=== PATIENT | female | born 1955 ===

== ENCOUNTER 2017-07-20 15:54 | Emergency (ER) | payer MEDICAID, OTHER ==
[2017-07-20 16:11] VITALS: PULSE 73
[2017-07-20] MEDS ORDERED: Lactated Ringer's 1,000 ML IV ONE (17:16)
--- NOTE | 2017-07-20 17:33 | C.PDOC ---
History Of Present Illness 61 y/o female with past medical history of diabetes and hypertension presents to ED with complaints of right lower back pain radiating to low abdomen worse today. Patient states pain has been going on for "a long time" and was told she had a kidney stone. Patient has not had surgery to remove stone secondary to not having insurance and unable to pay for it. Patient reports nausea and denies fever, chills, shortness of breath, chest pain, urinary/bowel incontinence or any other complaints at this time. Time Seen by Provider: 07/20/17 17:03 Chief Complaint (Nursing): Female Genitourinary History Per: Patient History/Exam Limitations: no limitations Onset/Duration Of Symptoms: Days Current Symptoms Are (Timing): Still Present Quality Of Discomfort: "Pain" Past Medical History Reviewed: Historical Data, Nursing Documentation, Vital Signs Vital Signs: Last Vital Signs Temp 97.6 F 07/20/17 19:30 Pulse 73 07/20/17 19:30 Resp 20 07/20/17 19:30 BP 129/77 07/20/17 19:30 Pulse Ox 99 07/20/17 19:30 - Medical History PMH: HTN, Kidney Stones Surgical History: No Surg Hx Family History: States: No Known Family Hx - Social History Hx Alcohol Use: No Hx Substance Use: No - Immunization History Hx Tetanus Toxoid Vaccination: No Hx Influenza Vaccination: No Hx Pneumococcal Vaccination: No Review Of Systems Constitutional: Negative for: Fever, Chills Gastrointestinal: Positive for: Nausea, Abdominal Pain. Negative for: Vomiting Genitourinary: Negative for: Dysuria, Hematuria Musculoskeletal: Positive for: Back Pain Skin: Negative for: Rash Physical Exam - Physical Exam Appears: Non-toxic, No Acute Distress Skin: Warm, Dry, No Rash Head: Normacephalic Eye(s): bilateral: Normal Inspection Oral Mucosa: Moist Neck: Normal ROM, Supple Chest: Symmetrical Cardiovascular: Rhythm Regular Respiratory: Normal Breath Sounds, No Accessory Muscle Use, No Rales, No Rhonchi , No Wheezing Gastrointestinal/Abdominal: Soft, No Tenderness, No Guarding, No Rebound Extremity: Normal ROM, Capillary Refill (<2 seconds) Neurological/Psych: Oriented x3, Normal Motor, Normal Sensation ED Course And Treatment - Laboratory Results Result Diagrams: 07/20/17 17:41 07/20/17 17:41 Lab Interpretation: No Acute Changes O2 Sat by Pulse Oximetry: 97 (RA) Pulse Ox Interpretation: Normal Medical Decision Making Medical Decision Making: Impression: Flank pain Plan: * Labs * CT Abd/pelvis Progress: Labs show mild hypokalemia. UA negative. CT shows 2 cm elliptical shaped calculus within the right renal pelvis Discussed results with patient, and copy of report was provided. On re-examination, patient is resting comfortably in no acute distress. Patient reports improvement of symptoms. Patient feels comfortable going home and will be discharged. Patient given follow up instructions. Instructed to return to ER if symptoms worsen or new symptoms arise. Disposition Counseled Patient/Family Regarding: Studies Performed, Diagnosis, Need For Followup, Rx Given - Disposition Referrals: Stephen Galindo MD [Staff Provider] - Disposition: HOME/ ROUTINE Disposition Time: 19:04 Condition: IMPROVED Additional Instructions: Tienes clculos renales Seguimiento con urlogo Onida medicamento para el dolor segn sea necesario Prescriptions: Ibuprofen [Motrin] 600 mg PO Q8 #30 tab Tamsulosin [Flomax] 0.4 mg PO DAILY #10 cap traMADol [Ultram] 50 mg PO Q8 #14 tab Instructions: Kidney Stones (DC) Forms: [employer] (Algerian) Print Language: BULGARIAN - POA Present On Arrival: None - Clinical Impression Clinical Impression: Kidney stone on right side - 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 - Scribe Statement The provider has reviewed the documentation as recorded by the Mihiribmichelle Hanna All medical record entries made by the Mihiribmichelle were at my direction and personally dictated by me. I have reviewed the chart and agree that the record accurately reflects my personal performance of the history, physical exam, medical decision making, and the department course for this patient. I have also personally directed, reviewed, and agree with the discharge instructions and disposition.
[2017-07-20 17:52] LABS: BASO # 0.1 K/uL (0.0-0.2); BASO % 0.8 % (0.0-2.0); EOS # 0.6 K/uL (0.0-0.7); EOS % 5.1 % (0.0-4.0); HEMATOCRIT 40.5 % (34.0-47.0); LYMPH # 4.3 K/uL (1.0-4.3); LYMPH % 39.6 % (20.0-40.0); MEAN CELL VOLUME 69.2 fL (81.0-99.0); MEAN CORPUSCULAR HEMOGLOBIN 22.3 pg (27.0-31.0); MEAN CORPUSCULAR HGB CONC 32.2 g/dL (33.0-37.0); MEAN PLATELET VOLUME 8.4 fL (7.2-11.7); MONO % 9.4 % (0.0-10.0); RED CELL DISTRIBUTION WIDTH 14.7 % (11.5-14.5); WHITE BLOOD COUNT 10.8 K/uL (4.8-10.8)
[2017-07-20] MEDS ORDERED: Lactated Ringer's 1,000 ML ONE (18:10)
[2017-07-20 18:14] LABS: RBC URINE < 1 /hpf (0-3); URINE BILIRUBIN NEGATIVE (NEGATIVE); URINE BLOOD NEGATIVE (NEGATIVE); URINE COLOR Straw (YELLOW); URINE GLUCOSE (UA) NORMAL (Normal); URINE KETONE NEGATIVE (NEGATIVE); URINE LEUKOCYTE ESTERASE NEG Leu/uL (Negative); URINE PROTEIN NEGATIVE (NEGATIVE); URINE UROBILINOGEN NORMAL mg/dL (0.2-1.0); WBC URINE 1 /hpf (0-5)
[2017-07-20 18:37] LABS: ALB/GLOB RATIO 1.4 (1.0-2.1); ALKALINE PHOSPHATASE 53 U/L (38-126); ALT/SGPT 37 U/L (9-52); AST/SGOT 22 U/L (14-36); BILIRUBIN,TOTAL 0.7 mg/dL (0.2-1.3); BLOOD UREA NITROGEN 20 mg/dL (7-17); CALCIUM 8.5 mg/dl (8.6-10.4); CARBON DIOXIDE 25 mmol/L (22-30); CHLORIDE 97 mmol/L (98-107); GFR AFRICAN-AMERICAN > 60; GLUCOSE,RANDOM 110 mg/dL (65-105); POTASSIUM 3.4 mmol/L (3.6-5.2); SODIUM 134 mmol/L (132-148); TOTAL PROTEIN 7.6 g/dL (6.3-8.3)
[2017-07-20] MEDS ORDERED: Potassium Chloride 20 mEq ER Tab PO STA (18:42)
[2017-07-20] MEDS ORDERED: Potassium Chloride 20 mEq ER Tab PO ONE (18:53)
--- NOTE | 2017-07-20 18:59 | CT ---
PROCEDURE: CT scan abdomen pelvis dated 07/20/2017. HISTORY: Right flank pain COMPARISON: None. TECHNIQUE: Contiguous axial images of the abdomen and pelvis. Oral contrast was administered. No IV contrast given. Coronal and Sagittal reformats generated. Radiation dose: Total exam DLP = 472.09 mGy-cm. This CT exam was performed using one or more of the following dose reduction techniques: Automated exposure control, adjustment of the mA and/or kV according to patient size, and/or use of iterative reconstruction technique. FINDINGS: LOWER THORAX: Mild passive type atelectasis both lung bases. There is a elliptical shaped somewhat ground-glass/translucent density in the posteromedial aspect right posterior sulcus which at could represent localize atelectasis is well. Consider followup nonemergent CT scan of the chest for further evaluation No evidence of effusion or basilar pneumothorax. There is a small hiatal hernia. Heart size within range of normal. LIVER: Unremarkable. No gross lesion or ductal dilatation. Liver is mildly enlarged measuring just over 20 cm in CC dimension. No obvious hepatic mass collection or calcification. GALLBLADDER AND BILE DUCTS: Gallbladder is physiologically distended. No evidence of intraluminal gallbladder calculi. PANCREAS: Pancreas appears grossly unremarkable. SPLEEN: The spleen exhibits normal size and attenuation pattern without mass collection or calcification. ADRENALS: No adrenal lesions seen. KIDNEYS AND URETERS: The kidneys exhibit relatively symmetric nephrograms. . There is a large approximately 2 cm calculus (presumed staghorn) within the right renal pelvis. Two adjacent smaller calculi present. . The proximal right ureter is slightly dilated and less so along its mid and distal on margin. No definitive evidence of right ureteral calculus. . No evidence of left-sided nephrolithiasis or hydronephrosis. BLADDER: The urinary bladder is physiologically distended. No evidence of intraluminal urinary bladder calculi. REPRODUCTIVE: Changes of hysterectomy APPENDIX: The appendix is is not seen with complete certainty however no obvious inflammatory changes right lower quadrant of the abdomen. BOWEL: Evaluation of the bowel is somewhat limited due to the lack of oral contrast material. The stomach is distended with food debris liquid and air. Visualized loops of small bowel exhibit normal contour and caliber. No evidence of acute mechanical small bowel obstruction. Moderate amount of stool is seen within the cecum and at ascending as well as to a lesser degree transverse colon suggesting mild fecal retention/constipation. There may be a hyperdense diverticulum along the distal aspect of the ascending colon. No radiographic evidence of acute diverticulitis. PERITONEUM: No evidence of free intraperitoneal air. No free or loculated fluid collections. Small fat containing umbilical hernia. LYMPH NODES: . No significant bulky adenopathy VASCULATURE: No evidence of abdominal aortic aneurysm. BONES: Minor multilevel degenerative spondylosis of the lower thoracic and lumbar spine. There are no acute compression fractures no retropulsed fragments. OTHER FINDINGS: None. IMPRESSION: There is a large approximately 2 cm elliptical shaped calculus within the right renal pelvis. Two adjacent smaller calculi present. The proximal right ureter is slightly dilated and less so along its mid and distal margin. . No evidence of ureteral calculi. Hepatomegaly. There appears to be at least 1 hyperdense diverticulum distal ascending colon no evidence of acute diverticulitis. The appendix not seen with any certainty on this exam. No evidence of cholelithiasis.
[2017-07-20 19:31] VITALS: BP 129/77; RESP 20; TEMP 97.6
[2017-07-21 17:38] VITALS: O2SAT 97
== END 2017-07-20 19:31 | disposition home or self-care (01) ==
LOC: C.ER 15:54
DX: N20.0 Calculus of kidney (principal); Z87.442 Personal history of urinary calculi; E87.6 Hypokalemia
CPT/HCPCS: 74176; 80053; 81001; 85025; 87086; 96374; 99285; J1885; J7120

== ENCOUNTER 2017-09-01 08:40 | Emergency (ER) | payer MEDICAID, OTHER ==
[2017-09-01] MEDS ORDERED: DiphenhydrAMINE 50 mg/ml Inj IVP STA (08:53)
--- NOTE | 2017-09-01 09:10 | C.PDOC ---
History Of Present Illness 61 y/o female with PMHx of HTN and DM presents to ED with complaints of right sided headache since 2 am today. Patient reports she had mild headache yesterday and denies fever, chills, numbness,weakness, vision changes or any other complaints at this time. Time Seen by Provider: 09/01/17 08:49 Chief Complaint (Nursing): Weakness/Neurological Deficit History Per: Patient History/Exam Limitations: no limitations Onset/Duration Of Symptoms: Hrs Current Symptoms Are (Timing): Still Present Past Medical History Reviewed: Historical Data, Nursing Documentation, Vital Signs Vital Signs: Last Vital Signs Temp 98.2 F 09/01/17 11:25 Pulse 74 09/01/17 11:10 Resp 17 09/01/17 11:10 BP 124/68 09/01/17 11:10 Pulse Ox 100 09/01/17 11:10 - Medical History PMH: HTN, Kidney Stones Surgical History: No Surg Hx Family History: States: No Known Family Hx - Social History Hx Alcohol Use: No Hx Substance Use: No - Immunization History Hx Tetanus Toxoid Vaccination: No Hx Influenza Vaccination: No Hx Pneumococcal Vaccination: No Review Of Systems Constitutional: Negative for: Fever, Chills Eyes: Negative for: Vision Change Gastrointestinal: Negative for: Nausea, Vomiting Skin: Negative for: Rash Neurological: Positive for: Headache. Negative for: Weakness, Numbness Physical Exam - Physical Exam Appears: Non-toxic, No Acute Distress Skin: Normal Color, Warm, Dry, No Rash Head: Atraumatic, Normacephalic Eye(s): bilateral: Normal Inspection Oral Mucosa: Moist Cardiovascular: Rhythm Regular Respiratory: Normal Breath Sounds, No Rales, No Rhonchi, No Wheezing Gastrointestinal/Abdominal: Soft, No Tenderness, No Guarding, No Rebound Extremity: Normal ROM, Capillary Refill (<2 seconds) Neurological/Psych: Oriented x3, Normal Speech, Normal Cognition, Normal Cranial Nerves, Normal Motor, Normal Sensation Gait: Steady ED Course And Treatment - Laboratory Results Result Diagrams: 09/01/17 09:09 09/01/17 09:09 ECG: Interpreted By Me, Viewed By Me ECG Rhythm: Sinus Rhythm Interpretation Of ECG: No ST/T wave changes Rate From EC (bpm ) O2 Sat by Pulse Oximetry: 97 (RA) Pulse Ox Interpretation: Normal - CT Scan/US Head w/o contrast Other Rad Studies (CT/US): Read By Radiologist, Radiology Report Reviewed CT/US Interpretation: IMPRESSION: Right ethmoidal and right sphenoid sinusitis . Incidental benign-appearing right ethmoidal osteoma. No intracranial hemorrhage or mass effect Medical Decision Making Medical Decision Making: contrary to triage, no facial droop noted. pt speaking full sentences in nad, no numbness no paresthesias. neuro intact .ct shows right sided sinusitis. pt states feels well for dc blood sugar elevated no e/o of dka. bicarb 27. Disposition - Disposition Referrals: [facility] [Outside] [facility] [Outside] [facility] [Outside] Grady Patel MD [Staff Provider] - Estevan Edwards MD [Staff Provider] - Disposition: HOME/ ROUTINE Disposition Time: 09:47 Condition: STABLE Additional Instructions: follow up with your doctor. return to er with worsening symptoms or concerns. Prescriptions: Amoxicillin/Clavulanate [Augmentin 875 MG-125 MG] 1 tab PO BID #20 tab Instructions: Sinusitis (ED), Acute Headache (ED), Diabetic Hyperglycemia (ED) Forms: [employer] (Guinean) Print Language: IRAQI - Clinical Impression Clinical Impression: Headache, Sinusitis, Hyperglycemia - Scribe Statement The provider has reviewed the documentation as recorded by the Mihiribmichelle Hanna All medical record entries made by the Mihiribmichelle were at my direction and personally dictated by me. I have reviewed the chart and agree that the record accurately reflects my personal performance of the history, physical exam, medical decision making, and the department course for this patient. I have also personally directed, reviewed, and agree with the discharge instructions and disposition.
[2017-09-01 09:16] LABS: BASO # 0.1 K/uL (0.0-0.2); BASO % 1.1 % (0.0-2.0); EOS # 0.3 K/uL (0.0-0.7); EOS % 3.1 % (0.0-4.0); HEMOGLOBIN 13.7 g/dL (11.0-16.0); LYMPH # 2.6 K/uL (1.0-4.3); LYMPH % 24.1 % (20.0-40.0); MEAN CORPUSCULAR HGB CONC 32.8 g/dL (33.0-37.0); MEAN PLATELET VOLUME 8.8 fL (7.2-11.7); MONO # 0.7 K/uL (0.0-0.8); MONO % 6.7 % (0.0-10.0); NRBC % 0.1 % (0.0-2.0); RBC 5.97 Mil/uL (3.80-5.20); RED CELL DISTRIBUTION WIDTH 14.9 % (11.5-14.5); WHITE BLOOD COUNT 10.8 K/uL (4.8-10.8)
[2017-09-01 09:25] LABS: PROTHROMBIN TIME 10.6 SECONDS (9.7-12.2)
[2017-09-01 09:26] LABS: ALB/GLOB RATIO 1.2 (1.0-2.1); ALBUMIN 4.4 g/dL (3.5-5.0); ALT/SGPT 22 U/L (9-52); AST/SGOT 22 U/L (14-36); BLOOD UREA NITROGEN 15 mg/dL (7-17); CALCIUM 9.4 mg/dl (8.6-10.4); GFR AFRICAN-AMERICAN > 60; GFR NON-AFRICAN AMERICAN > 60
[2017-09-01] MEDS ORDERED: DiphenhydrAMINE 50 mg/ml Inj ONE (09:28)
--- NOTE | 2017-09-01 09:36 | CT ---
PROCEDURE: CT HEAD WITHOUT CONTRAST. HISTORY: right sided alvarez COMPARISON: None available. TECHNIQUE: Axial computed tomography images were obtained through the head/brain without intravenous contrast. Radiation dose: Total exam DLP = 799 mGy-cm. This CT exam was performed using one or more of the following dose reduction techniques: Automated exposure control, adjustment of the mA and/or kV according to patient size, and/or use of iterative reconstruction technique. FINDINGS: HEMORRHAGE: No intracranial hemorrhage. BRAIN: No mass effect or edema. No atrophy or chronic microvascular ischemic changes. VENTRICLES: Unremarkable. No hydrocephalus. CALVARIUM: Unremarkable. PARANASAL SINUSES: Ethmoidal sinus inflammatory changes more extensive in the posterior the mid right ethmoidal air cells also involves the right sphenoid air cell. Hypoplastic right frontal air cell. Left frontal air cell aplastic MASTOID AIR CELLS: Unremarkable as visualized. No inflammatory changes. OTHER FINDINGS: Incidental benign-appearing osteoma right ethmoidal air cells. IMPRESSION: Right ethmoidal and right sphenoid sinusitis . Incidental benign-appearing right ethmoidal osteoma No intracranial hemorrhage or mass effect
[2017-09-01] MEDS ORDERED: Amoxicillin-Clav 875-125 mg Tab PO STA (09:41)
[2017-09-01] MEDS ORDERED: Amoxicillin-Clav 875-125 mg Tab PO ONE (10:02)
[2017-09-01] MEDS ORDERED: (Novolin R) Insulin Human Regular 100 units/ml vial IV STA (10:03)
[2017-09-01] MEDS ORDERED: (Novolin R) Insulin Human Regular 100 units/ml vial ONE (10:12)
[2017-09-01 11:23] VITALS: BP 124/68; PULSE 74; RESP 17
[2017-09-01 11:26] VITALS: TEMP 98.2
[2017-09-02 17:18] VITALS: O2SAT 97
--- NOTE | 2017-09-04 07:02 | CARD ---
APPROVED REPORT EKG Measurement Heart [id number] <Conclusion> Normal sinus rhythm Normal ECG
== END 2017-09-01 11:28 | disposition home or self-care (01) ==
LOC: C.ER 08:40
DX: J32.9 Chronic sinusitis, unspecified (principal); R51 Headache; E11.65 Type 2 diabetes mellitus with hyperglycemia
CPT/HCPCS: 70450; 80053; 82948; 85025; 85610; 85730; 93005; 96374; 96375; 99285; J1200; J2765

== ENCOUNTER 2017-09-21 12:49 | Day surgery (SDC) | payer OTHER ==
[2017-09-21] MEDS ORDERED: Propofol 10 mg/ml Inj (20 ML) ONE (15:12)
[2017-09-21] MEDS ORDERED: Midazolam 2 MG/2 ML VIAL ONE (15:12)
[2017-09-21] MEDS ORDERED: cefTRIAXone 1 gm 1 GM/100 ML BAG IVPB ONE (15:26)
[2017-09-21] MEDS ORDERED: Lactated Ringer's 1,000 ML IV ONE (15:30)
[2017-09-21] MEDS ORDERED: Oxycodone/Acetaminophen 5/325 mg Tab PO PRN (15:54)
[2017-09-21 18:02] VITALS: RESP 18; TEMP 98; O2SAT 100
[2017-09-21 18:21] VITALS: BP 137/80; PULSE 71
--- NOTE | 2017-09-22 14:11 | RAD ---
HISTORY: RIGHT HYDRONEPHROSIS COMPARISON: CT abdomen and pelvis 07/20/2017 FINDINGS: BOWEL: Normal. No obstruction. No free air. BONES: Mild senescent change OTHER FINDINGS: At least 3 right renal calculi present ; the largest 24 x 13 mm projects over the lower pole within the right intrarenal pelvis. Position and appearance similar to CT. Smaller calculi inferior and lateral to this - within the right inferior collecting system. No gross left renal calculi or distal ureteral or pelvic calculi noted IMPRESSION: Multiple right renal calculi.
--- NOTE | 2017-09-22 17:12 | RAD ---
PROCEDURE: HISTORY: As above COMPARISON: None TECHNIQUE: Total fluoroscopic time utilized during the procedure: 12.0 seconds. Total dose 0.66906 mGy cm squared FINDINGS: Submitted images from the current procedure: 4 Please refer to the physician's notes performing the procedure. IMPRESSION: Less than 1 hour fluoroscopic time utilized during performance of the procedure
--- NOTE | 2017-11-05 07:24 | OP ---
PREOPERATIVE DIAGNOSES: Urolithiasis, hematuria, and gigantic stones. POSTOPERATIVE DIAGNOSES: Urolithiasis, hematuria, and gigantic stones. PROCEDURES: Cystoscopy, a right retrograde pyelogram, and insertion of double J stent. COMPLICATIONS: There were no complications. ESTIMATED BLOOD LOSS: Less than 10 mL. PROCEDURE #1 FINDINGS: 1. No bladder abnormalities. 2. Gigantic stone within the kidney, atleast one big stone, that is probably close to 3-cm couple of little branches of stones that are not probably necessarily connected. There were no complications. INDICATIONS: See the history and physical above. This is a very pleasant lady. My recommendations, she presented to us as; she still has no insurance. She presents to us with options. My real recommendation is for percutaneous nephrostolithotomy. I explained to the patient that she would be better off with one set of treatments and that it will take about a few treatments with percutaneous done by the Interventional Radiology. I outlined the course very clearly by the Interventional Radiologist. I will dilate it up. I would do percutaneous nephrostolithotomy, and then whatever is remnant, I would go back either with uteroscope or nephroscope, and be able to rate the patient. In alternative, but I do not recommend it, and I do not think AUA guideline is to do what we are doing, and today we are putting a stent in and we are going to try a some ureteroscopy and laser lithotripsy. I explained this is "less invasive" in the sense that there is no percutaneous nephrostomy tube. However, the number of procedures that will require, I cannot be positive, but I suspect a lot, given the size of the stone. After discussing all these observations and also she is limited in where she can go. I did the discuss the idea of going to sandwich technique of putting a stent in ureteroscopy, and then going after the stone center for shock-wave lithotripsy, and see how the responses are. That is not going to be the option for this patient. So, I discussed all those options at length. She is here now, and today we are putting in a stent. See the history and physical for the details. DESCRIPTION OF PROCEDURE: After obtaining informed consent, the patient was placed on the table. Routine monitors were placed. Time-out was called in confirming the patient positioning. retrograde pyelogram was performed. A gigantic stone was identified. For the little branches, see the pictures. (We also have the advantage of having the CAT scan with us.) It is also done in this hospital. I am looking at it before I start. We explained risks, benefits, complications . The patient has the double J stent in. . I was also very clear with the patient in [place]ian. We are translating that, we are not going to get rid of the stone all today. We are going to put a stent and then she is going to come back in; she is going to come back and get ureteroscopy, and also I am going to ask her to consider against percutaneous nephrolithotomy, and I think that it is a better treatment choice. The patient tolerated the procedure without complications. Zachary Galindo MD
== END 2017-09-21 18:25 | disposition home or self-care (01) ==
LOC: C.SDS 12:49
PROVIDERS: ATTEND Urology
DX: N13.2 Hydronephrosis with renal and ureteral calculous obstruction (principal); I10 Essential (primary) hypertension; E11.9 Type 2 diabetes mellitus without complications
CPT/HCPCS: 52005; 52332; 74018; 82948; C1758; C1769; C2625; J0696; J1580; J7120

== ENCOUNTER 2017-09-24 09:35 | Day surgery (SDC) | payer OTHER, SELFPAY ==
[2017-09-24] MEDS ORDERED: HYDROmorphone 0.5 mg/0.5 ml ISec IVP PRN ×2 (11:21→13:25)
[2017-09-24] MEDS ORDERED: Midazolam 2 MG/2 ML VIAL ONE (11:52)
[2017-09-24] MEDS ORDERED: Propofol 10 mg/ml Inj (20 ML) ONE ×2 (11:52→12:11)
[2017-09-24] MEDS ORDERED: Lactated Ringer's 1,000 ML IV ONE (12:00)
[2017-09-24] MEDS ORDERED: Gentamicin 80 mg in 0.9% NS 80 MG/100 ML BAG IVPB ONE (13:00)
[2017-09-24 14:42] VITALS: BP 114/70; PULSE 63; RESP 18; TEMP 97.3; O2SAT 100
--- NOTE | 2017-09-24 16:50 | RAD ---
HISTORY: RT. RENAL STAGHORN COMPARISON: 09/21/2017 FINDINGS: BOWEL: No obstruction. Stool retention BONES: Inferior lumbar spondylosis OTHER FINDINGS: Right renal calculi bookbinder chief film image calculi similar to prior bookbinder chief image with exception of interval insertion of right ureteral stent Film labeled last film with double-J ureteral stent proximal coil and right estimated renal pelvis largest calculus inferior to this likely in the right inferior renal pelvis the fragmented calcifications inferior to this appear similar to the bookbinder chief image Distal ureteral stent coil in bladder IMPRESSION: As above
--- NOTE | 2017-09-24 16:54 | RAD ---
PROCEDURE: As above HISTORY: As above COMPARISON: 09/24/2017 abdominal to few film TECHNIQUE: Total fluoroscopic time utilized during the procedure: 15.8 seconds. Total dose 0.21836 mGy cm squared FINDINGS: Submitted images from the current procedure: 5 Please refer to the physician's notes performing the procedure. Multiple right renal calculi similar-appearing IMPRESSION: As above
--- NOTE | 2017-11-05 10:08 | OP ---
PROCEDURE DATE: PREOPERATIVE DIAGNOSES: Urolithiasis, gigantic right staghorn calculus, hematuria, hydronephrosis, flank pain and infections. POSTOPERATIVE DIAGNOSES: Urolithiasis, gigantic right staghorn calculus, hematuria, hydronephrosis, flank pain and infections. PROCEDURES: Cystoscopy, removal of a right double-J stent, insertion of a right double-J stent, right ureteroscopy and a right laser lithotripsy, right renoscopy and laser lithotripsy of right kidney stones. COMPLICATIONS: There were no complications. ESTIMATED BLOOD LOSS: Less than 10 mL At the termination of the procedure, the patient still with stone, but it significantly improved in size. The patient still has more treatments to go. INDICATIONS: See history and physical for further details and see the previous notes dated from 09/21/2017. A very pleasant lady. She had initially replaced a stent. My real recommendation is percutaneous nephrostolithotomy. She does not want that. We discussed options. We discussed how it is going to take many, many treatments, but we will do our best, and she is now here for the second league of procedure trial. I explained this to the patient in great detail. Risks and benefits discussed at length, and we will plan to proceed. DESCRIPTION OF PROCEDURE: After obtaining the informed consent, the patient placed on the table. Routine monitor was placed. Timeout was called in to confirm the patient and positioning. Antibiotic prophylaxis. Again, given the staghorn stone and by definition being infected stone, we proceeded with multiple antibiotics given preoperatively. With the plan also for postop as well. Procedure is as follows, the patient was brought to the OR, placed on the table. Routine monitor was placed. Time out was called and to confirm the patient and positioning. We did introduce the cystoscope via the urethra. We removed the old double-J stent, passed a wire up to the kidney. We introduced the flexible ureteroscope right to the stone, it is a big giant stone under fluoroscopic imaging. We now provided laser imaging. We worked repetitively, quickly as best as we can while we can visualize well. We can see it very nicely. We did it with fluoroscopic imaging, we can see where we are exactly and also under direct vision with a camera so my assistant head cashier can help me. We used a 300 micron fiber. We went to about 2.5 to 3 Joules with a frequency of about 7 to 8 mHz depending on what the maximum this fiber would allow in. Until we can see very well and it was cloudy and powdered in. On further inspection, still reveals a good amount of stone disease, but otherwise no abnormalities. We put a wire back up to the kidney. We then put a double-J stent in. Overall, the patient tolerated this without complications. Zachary Galindo MD
--- NOTE | 2017-11-05 10:31 | HP ---
REASON FOR ADMISSION: Treatment of kidney stones. HISTORY OF PRESENT ILLNESS: Ms. Kana Alejandre is a pleasant lady who I initially treated last week with a cystoscope stent insertion and she presented to me with a gigantic stone, a staghorn calculus and my actually recommendation is for percutaneous nephrostolithotomy, she said no. We discussed the options. I discussed getting second opinion. She has seen other people. She would like to try this so what we are doing in now is bringing her for one of several procedures percutaneous and she would not allow percutaneous nephrostolithotomy so we are going to do a cystourethroscopy, laser lithotripsy. I explained the nature of the procedure. I explained the risks, I discussed the benefits, there are a lot of benefits to it if she can avoid surgical intervention. I discussed repeated antibiotics. I discussed many options available. I defer we are going to treat it ureteroscopically and that I explained in detail that it would take extra time to the OR, anesthesia, etc. but we will consider this. PAST MEDICAL AND SURGICAL HISTORY: As listed on the chart. No history of VT or CVA. SOCIAL HISTORY: She comes to the office. She speaks Cam[place]onian, my office translates for her. I also have spoken with her daughter several times. REVIEW OF SYSTEMS: As listed above. No weight loss, chest pain, shortness of breath or the like. PHYSICAL EXAMINATION: GENERAL: A well-nourished female, in no apparent distress. VITAL SIGNS: Within normal limits. . ABDOMEN: Soft, nontender. No flank mass was appreciated. PELVIC: . DIAGNOSES: Urolithiasis, hematuria, hydronephrosis, flank pain. PLAN: The plan is as follows. We are going to plan to proceed. We are going to do a cystourethroscopy, laser lithotripsy, and we are going to get as much stone as we possible can out and then further plans will follow clinically. I discussed with patient risks, benefits and alternatives and again more importantly I discussed that this is one of several treatments. Zachary Galindo MD [facility] # [id number]
== END 2017-09-24 14:57 | disposition home or self-care (01) ==
LOC: C.SDS 09:35
PROVIDERS: ATTEND Urology
DX: N20.2 Calculus of kidney with calculus of ureter (principal); N13.2 Hydronephrosis with renal and ureteral calculous obstruction
CPT/HCPCS: 52356; 74019; 82948; C1758; C1769; C2617; J0696; J1170; J1580; J7050; J7120

== ENCOUNTER 2017-10-01 15:33 | Emergency (ER) | payer OTHER ==
[2017-10-01 15:55] VITALS: BP 129/83; PULSE 79; RESP 16; TEMP 98.3; O2SAT 99
[2017-10-01] MEDS ORDERED: guaiFENesin 100 mg/5 ml Syrup UD PO STA (16:54)
--- NOTE | 2017-10-01 16:55 | C.PDOC ---
History Of Present Illness 62 y/o female presents to the ER complaining of headache ,cough, sore throat, and body aches. Patient has not taken any medications. Patient has positive sick contacts with influenza. Patient denies having any nausea, vomiting, and diarrhea. Time Seen by Provider: 10/01/17 16:42 Chief Complaint (Nursing): Flu-like Symptoms History Per: Patient History/Exam Limitations: no limitations Onset/Duration Of Symptoms: Hrs Current Symptoms Are (Timing): Still Present Associated Symptoms: Sore Throat, Cough. denies: Nausea, Vomiting, Diarrhea Severity: Moderate Past Medical History Reviewed: Historical Data, Nursing Documentation, Vital Signs Vital Signs: Last Vital Signs Temp 98.3 F 10/01/17 15:53 Pulse 79 10/01/17 15:53 Resp 16 10/01/17 15:53 BP 129/83 10/01/17 15:53 Pulse Ox 99 10/01/17 17:33 - Medical History PMH: HTN, Kidney Stones, Chronic Kidney Disease Other Surgeries: Hx of surgeries Family History: States: No Known Family Hx - Social History Hx Alcohol Use: No Hx Substance Use: No - Immunization History Hx Tetanus Toxoid Vaccination: No Hx Influenza Vaccination: No Hx Pneumococcal Vaccination: No Review Of Systems Constitutional: Positive for: Malaise ENT: Positive for: Throat Pain Respiratory: Positive for: Cough Gastrointestinal: Negative for: Nausea, Vomiting, Diarrhea Neurological: Positive for: Headache Physical Exam - Physical Exam Appears: Non-toxic, No Acute Distress Skin: Normal Color, Warm Head: Atraumatic, Normacephalic Eye(s): bilateral: Normal Inspection Ear(s): Bilateral: Normal Nose: Normal Oral Mucosa: Moist Throat: Erythema (mild erythema), No Exudate Neck: Supple Chest: Symmetrical Cardiovascular: Rhythm Regular Respiratory: Normal Breath Sounds, No Accessory Muscle Use, No Rales, No Rhonchi , No Wheezing Gastrointestinal/Abdominal: Normal Exam, Soft, No Tenderness Extremity: Normal ROM Neurological/Psych: Oriented x3, Normal Speech, Normal Motor, Normal Sensation ED Course And Treatment O2 Sat by Pulse Oximetry: 99 (RA) Pulse Ox Interpretation: Normal Medical Decision Making Medical Decision Making: early viral syndrome, + influenza contacts @ home. Disposition Doctor Will See Patient In The: Office Counseled Patient/Family Regarding: Studies Performed, Diagnosis - Disposition Referrals: [facility] [Outside] Disposition: HOME/ ROUTINE Disposition Time: 16:55 Condition: GOOD Additional Instructions: sigue Tamiflu 75 mg dos veces al prabhakar por 5 rosas- conta la Influenza Sigue Dayquil/Nyquil (o' equivalente) cada 4 horas. Faust Pharmacista puede reccomendar algunos mejjor para diabeticos. Sigue en la [facility] Prescriptions: Oseltamivir [Tamiflu] 75 mg PO BID #9 cap Instructions: Influenza (ED) Forms: [employer] (South Sudanese) Print Language: BELIZEAN - Clinical Impression Clinical Impression: Influenza-like illness - Scribe Statement The provider has reviewed the documentation as recorded by the Scribe Anika Randolph Provider Attestation: All medical record entries made by the Scribe were at my direction and personally dictated by me. I have reviewed the chart and agree that the record accurately reflects my personal performance of the history, physical exam, medical decision making, and the department course for this patient. I have also personally directed, reviewed, and agree with the discharge instructions and disposition.
[2017-10-01] MEDS ORDERED: guaiFENesin 100 mg/5 ml Syrup UD ONE (17:03)
== END 2017-10-01 17:14 | disposition home or self-care (01) ==
LOC: C.ER 15:33
DX: J11.1 Influenza due to unidentified influenza virus with other respiratory manifestations (principal)

== ENCOUNTER 2017-10-08 05:44 | Day surgery (SDC) | payer OTHER ==
[2017-10-07 07:22] VITALS: BMI 35.6
[2017-10-08] MEDS ORDERED: cefTRIAXone 1 gm 1 GM/100 ML BAG IVPB ONE (07:25)
[2017-10-08] MEDS ORDERED: Lidocaine 2% Jelly (Uro-Jet) ONE (07:26)
[2017-10-08] MEDS ORDERED: Iohexol 240 (50 ml) ONE (07:41)
[2017-10-08] MEDS ORDERED: Propofol 10 mg/ml Inj (20 ML) ONE (07:50)
[2017-10-08] MEDS ORDERED: Lactated Ringer's 1,000 ML IV ONE (08:30)
[2017-10-08] MEDS ORDERED: Oxycodone/Acetaminophen 5/325 mg Tab PO PRN (10:25)
[2017-10-08] MEDS ORDERED: HYDROmorphone 0.5 mg/0.5 ml ISec IVP PRN (10:25)
[2017-10-08] MEDS ORDERED: Lactated Ringer's 1,000 ML IV SCH (10:30)
[2017-10-08] MEDS ORDERED: Ciprofloxacin 400mg/200ml D5W 400 MG/200 ML BAG IVPB STA (10:36)
[2017-10-08] MEDS ORDERED: Gentamicin 80 mg/2mL Inj. ONE (11:39)
[2017-10-08 12:09] VITALS: BP 130/70; PULSE 71; RESP 18; TEMP 98; O2SAT 100
--- NOTE | 2017-10-08 17:49 | RAD ---
PROCEDURE: HISTORY: As Above COMPARISON: TECHNIQUE: Total fluoroscopic time utilized during the procedure: 118.1 seconds. Total dose 1.32 mGy cm squared FINDINGS: Submitted images from the current procedure: 8 Please refer to the physician's notes performing the procedure. IMPRESSION: Less than 1 hour fluoroscopic time utilized during performance of the procedure
--- NOTE | 2017-10-08 17:51 | RAD ---
HISTORY: RT. UROLITHIASIS COMPARISON: 09/24/2017 FINDINGS: BOWEL: Stool retention.. No obstruction. No free air. BONES: Senescent changes and increased sclerosis -but similar-appearing the 2 and L3 levels OTHER FINDINGS: Right ureteral stent current appearance with prior study labeled last film unchanged the largest renal calculus on the right is just lateral to the small right ureteral core all and lateral to that are fragmented [id number] no interval calcifications along the course of the ureteral stent or within the bladder appreciated IMPRESSION: Findings as above
--- NOTE | 2017-10-09 09:20 | HP ---
UROLOGY ADMISSION REASON FOR ADMISSION: For treatment of kidney stone. HISTORY OF PRESENT ILLNESS: Ms. Cherie Alejandre is a very pleasant lady, she is here nor for treatment of her stone. She has a gigantic staghorn stone and my recommendation is actually for percutaneous nephrostolithotomy, she said no. We discussed options and that she is here for a third ureteroscopy. I told her it is going to take about 5-6 times or so, but we are making progress, we can see the report from the chart demonstrating this and at just looking at the films. PAST MEDICAL AND SURGICAL HISTORY: No changes. SOCIAL HISTORY: She just mentioned to us today as we were doing the H and P and with Georgian translation that she is going to remove her pelvic on next Thursday. I told her that we should do nothing. I discussed about just removing the stent as my recommendation. She wants to continue doing the procedure today. I told her I will do as much as I can and then afterwards, she is going to be gone away for 3 months with the stent. I am going to put in actually, I told her, a bigger stent and then hope that she drinks enough fluids so the stent does not crust. Previously, we changed the stent. She is here for the third procedure. The first one we did an insertion of stent and then we did a ureteroscopy, laser, and now she is for a second laser. Actually, stone is drastically better and both times the stent was not crusted at all. REVIEW OF SYSTEMS: As listed above. PHYSICAL EXAMINATION GENERAL: A well-nourished female in no apparent distress. VITAL SIGNS: Noted. GENITAL: Within normal limits. PELVIC: but otherwise unremarkable. DIAGNOSIS: Urolithiasis with a heavy stone burden with a staghorn calculus in the right kidney and then also a couple of little . PLAN: Today the plan is for us to do ureteroscopy, renoscopy, laser lithotripsy. We will do our best to clear the system. I discussed with the patient and I still recommend even at this point that a perc would be better. She is still saying no through the real estate accountant. Also discussed with her, her plans but I do not think we can take the stent out, we are in the middle of treatment and she has some stone fragment. She has not been straining her urine, I am going to review this with her family as well. So the plan is as follows: Cystoscopy, ureteroscopy, laser lithotripsy. We will provide antibiotic prophylaxis . ADDENDUM The procedure went great. We had a lot of stone out. I am going to , give antibiotics, Flomax, Motrin, etc. Further plans will follow. Zachary Galindo MD
--- NOTE | 2017-10-09 09:55 | OP ---
PROCEDURE DATE: See the previously dictated notes. 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 PROCEDURES: Cystoscopy, removal of right double-J stent, right ureteroscopy, right renoscopy, right laser lithotripsy of stone and then insertion of right double-J stent. ESTIMATED BLOOD LOSS: Less than 10 mL. COMPLICATIONS: None. At the termination of the procedure, improved, it was extremely difficult to get to and also the vision was becoming a little blurry. It is like a lot more crowding and I am concerned about the possibility for sepsis, now I can see a couple of microperforations. After discussing, I am thinking of various options with the patient, that is the plan. DESCRIPTION OF PROCEDURE: I discussed with the patient options, risks, benefits, and alternatives; specifically in this . I have discussed with the patient, but she still wanted to go ahead with the procedure. I discussed even just removing the stent, but I do not really recommend that because she does have stone fragments although she cannot prove it, but I know from previous notes. She is here now for the above listed procedure. As we put a stent in, we did a ureteroscopy laser and we needed a much smaller stone is drastically improved. Stent is in good location, there are . We introduced the cystoscope via urethra. We identified the old stent, removed it, put a wire up to kidney, could not cross it at all. Through the flexible ureteroscopy, now we worked diligently carefully as best as we can for as long as we can and we were right on the stone, we lasered it, we could not get the urethra. We used a joules of about 1.5 with a frequency of about 8 mHz. Throughout the entire thing, we keep watching it with fluoroscopic imaging and we really little tinge of blood, there is little bit of microperforation, there is a little bit of cloudiness. Then after we worked for a while, we decided that it was more appropriate to terminate the procedure and come back in. There was no chance we are going to finish this I think. I still would consider percutaneous nephrostolithotomy although we are making nice progress. Overall, the patient tolerated the procedure without complication. As mentioned, the patient had antibiotic prophylaxis, we are going to keep a close eye. Zachary Galindo MD
== END 2017-10-08 12:45 | disposition home or self-care (01) ==
LOC: C.SDS 05:44
PROVIDERS: ATTEND Urology
DX: N13.2 Hydronephrosis with renal and ureteral calculous obstruction (principal)
CPT/HCPCS: 52356; 74022; 82948; J0696; J0744; J1170; J7120